=== PATIENT | male | born 2000 | race Caucasian/White ===

== ENCOUNTER 2023-03-15 09:22 | Emergency (ER) | payer BC, SELFPAY ==
[2023-03-15] VITALS (7 sets, daily range): BP systolic 110–118; BP diastolic 63–82; PULSE 91–111; RESP 17–30; TEMP 36.7; O2SAT 97–100
--- NOTE | ~2023-03-15 | XR_ITS ---
Clinical Indication: Cough PA and lateral views of the chest: Comparison: None Findings: Right middle lobe consolidations consistent with pneumonia. Left lung clear. Cardiomediast inal silhouette is within normal limits. Bones and soft tissues are unremarkable. Impression: Right middle lobe pneumonia. Reviewed, dictated and finalized at location . Impression: Right middle lobe pneumonia.
--- NOTE | 2023-03-15 09:23 | ECG_ITS ---
Measurements Intervals [place] Rate: 106 P: 68 [place]: 124 QRS: 90 QRSD: 90 T: 36 QT: 310 QTc: 412 Interpretive Statements SINUS TACHYCARDIA OTHERWISE NORMAL ECG ABNORMAL RHYTHM ECG NO PREVIOUS ECG AVAILABLE FOR COMPARISON Electronically Signed On 03-15-2023 12:15:25 CDT by Hamlet Khan M.D.
[2023-03-15 10:00] LABS: Basophils Absolute Auto 0.1 K/mm3 (0.0-0.1); Basophils Percent Auto 0.3 % (0.2-1.2); Eosinophils Absolute Auto 0.1 K/mm3 (0-0.3); Eosinophils Percent Auto 0.4 % (0-4.4); Hematocrit 38.2 % (42.0-52.0); Hemoglobin 12.7 g/dL (14.0-18.0); Immature Granulocyte Absolute 0.11 K/mm3 (0.00-0.031); Immature Granulocyte Percent A 0.6 % (0-0.5); Lymphocytes Absolute Auto 0.99 K/mm3 (0.9-3.2); Lymphocytes Percent Auto 5.2 % (18.3-44.2); Mean Corpuscular HGB Conc 33.2 g/dl (32-36); Mean Corpuscular Hemoglobin 29.5 pg (26-34); Mean Corpuscular Volume 88.8 fl (80-100); Mean Platelet Volume 9.8 fl (7.4-10.4); Monocytes Absolute Auto 1.3 K/mm3 (0.1-0.6); Monocytes Percent Auto 6.8 % (2.6-8.5); Neutrophils Absolute Auto 16.5 K/mm3 (1.3-6.7); Neutrophils Percent Auto 86.7 % (45.5-73.1); Platelet Count Result 379 k/mm3 (150-375); Red Cell Distribution Width 11.7 % (11.5-14.5)
[2023-03-15 10:07] LABS: INR 1.2; Prothrombin Time 15.3 Seconds (11.1-14.7)
[2023-03-15 10:08] LABS: Partial Thromboplastin Time 33.8 SECONDS (22.3-36.8)
[2023-03-15 10:09] LABS: Alanine Aminotransferase 16 U/L (6-50); Albumin Level 4.1 g/dL (3.5-5.1); Alkaline Phosphatase 79 U/L (38-126); Anion Gap 15 mmol/L (8-16); Aspartate Amino Transferase 18 U/L (17-59); Bilirubin,Total 1.6 mg/dL (0.2-1.3); Blood Urea Nitrogen 9 mg/dL (9-20); Carbon Dioxide 23 mmol/L (22-30); Chloride 101 mmol/L (98-107); Estimated CRCL calculation 118 ml/min; Estimated Glomerular Filt Rate > 60; Glucose 124 mg/dL (65-110); Lipase 51 U/L (23-300); Potassium 4.1 mmol/L (3.4-5.0); Sodium 139 mmol/L (137-145)
[2023-03-15 10:20] LABS: Troponin I < 0.012 ng/mL (0.000-0.034)
--- NOTE | 2023-03-15 14:00 | ED.CHESTPAIN ---
HPI - Chest Pain General Chief Complaint: Chest Pain Stated Complaint: cp Time Seen by Provider: 03/15/23 13:56 Source: patient and family Mode of arrival: ambulatory Limitations: no limitations History of Present Illness HPI narrative: Vinicio is a 22-year-old male patient presenting to the clinic today with complaints of right-sided chest pain x2 days. Has had increasing shortness of breath over the past 2 weeks with URI like symptoms. No known COVID, flu, or strep exposure. He denies any known fever or chills. Related Data Allergies Allergy/AdvReac Type Severity Reaction Status Date / Time No Known Allergies Allergy Verified 03/15/23 09:26 Review of Systems Review of Systems: Pertinent positives per HPI. Patient denies any fever, chills, rash, headache, visual changes, dizziness, sore throat, palpitations, nausea, vomiting, diarrhea, constipation, abdominal pain, or any urinary issues. Exam Narrative: General: Well-developed, well nourished,ill appearing, shallow breathing due to pain Head: Normocephalic, atraumatic Eyes: Pupils equally round and reactive to light bilaterally, EOM intact, sclera and conjunctive clear, no discharge, lids normal Ears: TMs intact and clear, ear canals clear, no drainage, grossly hearing normal. Nose: Nares patent, no discharge, no inflammation, no sinus tenderness. Mouth: Oropharynx without lesions or masses, good dentition, MMM. Neck: Supple, trachea midline, no enlargement of anterior or posterior cervical nodes, no thyroid masses or goiter palpable. Cardio: Regular tachycardic rate and rhythm-HR 105, s1 and s2 normal, no murmur appreciated. Resp:Right middle lobe crackles and diminished in the right lower lobe, no rhonchi, wheezing or rubs. SPO2 100% on room air Course Vital Signs Vital signs: Vital Signs Temperature 36.7 C 03/15/23 09:28 Pulse Rate 105 H 03/15/23 09:28 Respiratory Rate 20 03/15/23 09:28 Blood Pressure 110/63 03/15/23 09:28 Pulse Oximetry 97 03/15/23 09:28 Temperature 36.7 C 03/15/23 09:28 Pulse Rate 111 H 03/15/23 13:51 Respiratory Rate 27 H 03/15/23 13:51 Blood Pressure 117/75 03/15/23 13:51 Pulse Oximetry 100 03/15/23 13:52 Oxygen Delivery Room Air 03/15/23 13:52 MDM - Chest Pain MDM Narrative Medical decision making narrative: At the time of visit patient is resting on the exam table. Cardiac workup was completed. EKG shows sinus tachycardia without ectopy. White blood cell count is 19 with a left side shift. Chest x-ray show right middle lobe pneumnia. Lactic acid normal. COVID and flu testing was negative.I will treat patient for community-acquired pneumonia. Will send in prescription for azithromycin and Augmentin as well as an albuterol inhaler. Supportive measures were discussed with the patient and when to return. Patient voiced understanding and agrees to treatment plan. Differential Diagnosis Differential diagnosis: Likely pneumothorax, stable angina, atypical chest pain, st elevation myocardial infarction, costochondritis, chest pain and other ( pneumonia) Lab Data 03/15/23 09:51 03/15/23 09:51 Labs: Lab Results 03/15/23 03/15/23 03/15/23 Range/Units 09:50 09:51 13:35 WBC 19.0 H (4.5-10.0) K/mm3 RBC 4.30 L (4.6-6.20) M/mm3 Hgb 12.7 L (14.0-18.0) g/dL Hct 38.2 L (42.0-52.0) % MCV 88.8 (80-100) fl MCH 29.5 (26-34) pg MCHC 33.2 (32-36) g/dl RDW 11.7 (11.5-14.5) % Plt Count 379 H (150-375) k/mm3 MPV 9.8 (7.4-10.4) fl Immature Gran % (Auto) 0.6 H (0-0.5) % Neut % (Auto) 86.7 H (45.5-73.1) % Lymph % (Auto) 5.2 L (18.3-44.2) % [place] % (Auto) 6.8 (2.6-8.5) % Eos % (Auto) 0.4 (0-4.4) % Baso % (Auto) 0.3 (0.2-1.2) % Lymph # (Auto) 0.99 (0.9-3.2) K/mm3 [place] # (Auto) 1.3 H (0.1-0.6) K/mm3 Eos # (Auto) 0.1 (0-0.3) K/mm3 Baso # (Auto) 0.1 (0.0-0.1) K/m
[2023-03-15 14:11] LABS: Troponin I < 0.012 ng/mL (0.000-0.034)
[2023-03-15 14:15] LABS: Lactic Acid Reflex 0.9 mmol/L (0.7-2.0)
[2023-03-15 14:41] LABS: Influenza A QL RT-PCR Negative (Negative); Influenza B QL RT-PCR Negative (Negative); SARS-CoV-2 RNA PCR Negative (Negative)
== END 2023-03-15 14:32 | disposition home or self-care (01) ==
LOC: ANHED 14:24
PROVIDERS: General Practice; Student in an Organized Health Care Education/Training Program; Emergency Provider Nurse Practitioner Family; PCP Physician Assistant Medical
DX: J18.9 Pneumonia, unspecified organism (principal); R07.89 Other chest pain; Z20.822 Contact with and (suspected) exposure to COVID-19; R00.0 Tachycardia, unspecified
CPT/HCPCS: 36415; 71046; 80053; 83605; 83690; 84484; 85025; 85610; 85730; 87636; 93005; 99284